=== PATIENT | male | born 1950 | race Caucasian/White ===

== ENCOUNTER 2019-09-16 05:46 | Inpatient (IN) | payer MEDICARE ==
[2019-09-09 11:43] LABS: BASOPHILS % (AUTO) 0.3 % (0-1); EOSINOPHILS # (AUTO) 0.2 X10'3 (0-0.9); EOSINOPHILS % (AUTO) 2.9 % (0-6); LYMPHOCYTES # (AUTO) 1.8 X10'3 (1.1-4.8); MEAN CORPUSCULAR HEMOGLOBIN 33.7 PG (27.0-31.0); MEAN CORPUSCULAR HGB CONC 34.7 g/dL (33.0-36.5); MEAN CORPUSCULAR VOLUME 97.2 FL (78-98); MEAN PLATELET VOLUME 7.1 FL (7.4-10.4); MONOCYTES # (AUTO) 0.8 X10'3 (0-0.9); MONOCYTES % (AUTO) 10.8 % (2-12); NEUTROPHILS # (AUTO) 4.3 X10'3 (1.8-7.7); PRE OP HEMATOCRIT 36.7 % (42.0-52.0); PRE OP HEMOGLOBIN 12.7 g/dL (14.0-17.9); PRE OP PLATELET COUNT 177 X10'3 (140-440); RED BLOOD COUNT 3.77 X10'6 (4.70-6.10); RED CELL DISTRIBUTION WIDTH 13.8 % (11.5-14.5)
[2019-09-09 11:54] LABS: PRE OP PROTIME 10.3 SECONDS (9.0-12.0)
[2019-09-09 11:57] LABS: ALBUMIN 3.7 G/DL (3.4-5.0); ALBUMIN/GLOBULIN RATIO 1.1 (1.1-1.5); BLOOD UREA NITROGEN 16 MG/DL (7-18); BUN/CREATININE RATIO 14.5 (5.4-32.0); CALCIUM 8.8 MG/DL (8.5-10.1); CHLORIDE 103 MMOL/L (99-107); PRE OP ALT 29 U/L (30-65); PRE OP ANION GAP 4 (8-16); PRE OP AST 27 U/L (10-37); PRE OP BILIRUB, TOTAL 0.8 MG/DL (0.0-1.0); PRE OP GLUCOSE 100 MG/DL (70-104); PRE OP POTASSIUM 3.6 MMOL/L (3.4-5.1); PRE OP SODIUM 139 MMOL/L (135-145); TOTAL CARBON DIOXIDE 31.9 MMOL/L (24-32); TOTAL PROTEIN 7.2 G/DL (6.4-8.2); eGFR 66 ML/MIN
[2019-09-09 12:36] LABS: ALKALINE PHOSPHATASE 76 IU/L (46-116)
[~2019-09-16] VITALS: Ht 172.7 cm; Wt 101.0 kg
[2019-09-16] VITALS (20 sets, daily range): BP systolic 96–140; BP diastolic 52–74
[~2019-09-16 05:46] MED LIST: ATOR10TA70 PO; CALC625T61; CARV6.253 PO; CHOL400T14 PO; DOCUMENT DATE & TIME OF BETA-BLOCKER PO ONE; HYDR25TA4 PO; LISI2.5T2 PO; MULT-955 PO; cefazolin/dext.iso 2gm/100ml 100 ML IV ONE; famotidine 20mg tablet PO ONE; ringers solution, lacted 1,000 ML IV SCH; vancomycin inj 1,500 MG in normal saline 300ml IV soln IV ONE
[2019-09-16] MEDS ORDERED: LIDOcaine 1% (10mg/ml) 2ml vial ONE (05:49)
[2019-09-16] MEDS ORDERED: ceFAZolin 1000mg inj ONE (06:43)
[2019-09-16] MEDS ORDERED: tetracaine 1% (10mg/ml) pres. free inj. ONE (07:13)
[2019-09-16] MEDS ORDERED: fentaNYL/PF 50MCG/1 ML 2ML syringe ONE (07:15)
[2019-09-16] MEDS ORDERED: MIDAZolam 5mg/5ml vial ONE (07:15)
[2019-09-16] MEDS ORDERED: tranexamic acid inj. 1,000 MG in normal saline 100ml IV soln 100 ML IV ONE (07:20)
[2019-09-16] MEDS ORDERED: propofol inj 20 ML IV ONE (07:49)
[2019-09-16] MEDS ORDERED: ROPIVAcaine 0.5% (5mg/ml) 30ml vial ONE (08:01)
[2019-09-16] MEDS ORDERED: LIDOcaine 1%/PF 5ML 10 MG/ML VIAL ONE (08:02)
[2019-09-16] MEDS ORDERED: ringers solution, lacted 1,000 ML IV SCH (08:48)
[2019-09-16] MEDS ORDERED: ROPIVAcaine 0.2%/PF PUMP/bolus 550 ML ADDCANAL SCH (08:48)
[2019-09-16] MEDS ORDERED: morphine 4 MG/ML inj SYRINge IV PRN ×2 (08:50)
[2019-09-16] MEDS ORDERED: proCHLORperazine 10 MG/2 ml inj IV PRN (08:50)
[2019-09-16] MEDS ORDERED: ondansetron/PF 4mg/2ml inj IV PRN ×2 (08:50→10:05)
[2019-09-16] MEDS ORDERED: meperidine/PF 25mg/ml syringe IV PRN ×3 (08:50)
[2019-09-16] MEDS ORDERED: HYDROmorphone 1 mg/ml syringe IV PRN (10:05)
[2019-09-16] MEDS ORDERED: magnesium hydroxide 30ml (MOM) UD suspension PO PRN (10:05)
[2019-09-16] MEDS ORDERED: diphenhydrAMINE 25mg capsule PO PRN ×2 (10:05)
[2019-09-16] MEDS ORDERED: bisacodyl 10mg suppository rectal RC PRN (10:05)
--- NOTE | 2019-09-16 10:05 | NUR ---
Received from OR via BED , accompanied by Anesthesiologist DR FRASER and report given by Anesthesiolgist. PATIENT WAKING UP, DENIES PAIN, V/S WNL, NEUROVASCULAR CHECKS INTACT, 18G PIV LUE , MARS DRESSING TO RIGHT KNEE CDI W/ COLD POWDER PACK AND W/ SCD ON. F/C DRAINING CLEAR YELLOW URINE. SENSATION T-11.
[2019-09-16] MEDS: ROPIVAcaine 0.2%/PF PUMP/bolus 550 ML ADDCANAL SCH ×2 (10:16→21:04)
--- NOTE | 2019-09-16 11:25 | NUR ---
PATIENT WAKING UP, DENIES PAIN, V/S WNL, NEUROVASCULAR CHECKS INTACT, 18G PIV LUE , MARS DRESSING TO RIGHT KNEE CDI W/ COLD POWDER PACK AND W/ SCD ON. F/C DRAINING CLEAR YELLOW URINE. SENSATION T-11. PATIENT TAKEN TO 4024B WITH ALL BELONGINGS AND HOOKED UP TO MONITORS IN ROOM AND REPORT GIVEN TO DISPATCHER [employer]POS[employer] WHO HAS TAKEN OVER PATIENT CARE.
[2019-09-16] MEDS: HYDROcodone/acetaminophen 10/325mg tab PO PRN ×2 (14:24→21:54)
[2019-09-16] MEDS: potassium Cl 20mEq in NS 1,000 ML IV SCH ×2 (15:45→23:24)
[2019-09-16] MEDS ORDERED: aspirin 325mg tablet PO SCH (17:30)
[2019-09-16] MEDS: ceFAZolin 1GM/D5W- ADD-VANTAGE 50 ML IV SCH (17:30)
--- NOTE | 2019-09-16 19:35 | NUR ---
REPORT REC'D FROM JAILENE TRUJILLO.
[2019-09-16] MEDS ORDERED: vancomycin/NS 1 GM ADD-VANTAGE 250 ML IV SCH (20:00)
[2019-09-16] MEDS ORDERED: aspirin 81mg tablet.DR PO ONE (20:20)
[2019-09-16] MEDS: carvedilol 6.25mg tablet PO SCH (21:02)
[2019-09-16] MEDS: sennosides 8.6mg tablet PO SCH (21:02)
[2019-09-16] MEDS: ROPIVAcaine 0.2% (10 MG/5 ML) BOLUS INJECTION ADDCANAL PRN (21:04)
[2019-09-17] VITALS (7 sets, daily range): BP systolic 104–145; BP diastolic 42–70
[2019-09-17] MEDS: ceFAZolin 1GM/D5W- ADD-VANTAGE 50 ML IV SCH (00:41)
--- NOTE | 2019-09-17 04:47 | NUR ---
PT IS REQUESTING TO NOT USE COLD PACKS ON KNEE R/T THE PRESSURE CAUSES MORE PAIN.
[2019-09-17] MEDS: potassium Cl 20mEq in NS 1,000 ML IV SCH ×2 (05:02→15:09)
[2019-09-17] MEDS: HYDROcodone/acetaminophen 10/325mg tab PO PRN ×3 (05:07→23:24)
--- NOTE | 2019-09-17 06:10 | NUR ---
REPORT GIVEN TO JAILENE TRUJILLO.
[2019-09-17 06:17] LABS: BASOPHILS % (AUTO) 0.2 % (0-1); EOSINOPHILS # (AUTO) 0.1 X10'3 (0-0.9); EOSINOPHILS % (AUTO) 0.8 % (0-6); HEMATOCRIT 29.7 % (42.0-52.0); HEMOGLOBIN 10.4 g/dl (14.0-17.9); LYMPHOCYTES # (AUTO) 1.2 X10'3 (1.1-4.8); LYMPHOCYTES % (AUTO) 12.8 % (21-51); MEAN CORPUSCULAR HEMOGLOBIN 33.9 PG (27.0-31.0); MEAN CORPUSCULAR HGB CONC 35.2 g/dL (33.0-36.5); MEAN CORPUSCULAR VOLUME 96.6 FL (78-98); MEAN PLATELET VOLUME 7.1 FL (7.4-10.4); MONOCYTES # (AUTO) 1.5 X10'3 (0-0.9); MONOCYTES % (AUTO) 16.2 % (2-12); NEUTROPHILS # (AUTO) 6.6 X10'3 (1.8-7.7); PLATELET COUNT 141 X10'3 (140-440); RED BLOOD COUNT 3.08 X10'6 (4.70-6.10); RED CELL DISTRIBUTION WIDTH 13.7 % (11.5-14.5); WHITE BLOOD COUNT 9.4 X10'3 (4.5-11.0)
[2019-09-17 07:11] LABS: ALANINE AMINOTRANSFERASE 24 U/L (12-78); ALKALINE PHOSPHATASE 61 IU/L (46-116); ANION GAP 7 (8-16); ASPARTATE AMINO TRANSFERASE 22 U/L (10-37); BILIRUBIN,TOTAL 1.4 MG/DL (0.1-1.0); BLOOD UREA NITROGEN 13 MG/DL (7-18); BUN/CREATININE RATIO 10.9 (5.4-32.0); CALCIUM 7.8 MG/DL (8.5-10.1); CHLORIDE 102 MMOL/L (99-107); CREATININE 1.19 MG/DL (0.60-1.10); GLUCOSE 115 MG/DL (70-104); SODIUM 136 MMOL/L (135-145); TOTAL CARBON DIOXIDE 27.1 MMOL/L (24-32); TOTAL PROTEIN 6.1 G/DL (6.4-8.2); eGFR 61 ML/MIN
[2019-09-17 07:48] LABS: TOTAL CELLS COUNTED 100
[2019-09-17] MEDS: lisinopril 2.5mg tablet PO SCH (07:49)
[2019-09-17] MEDS: HYDROchlorothiazide 25mg tablet PO SCH (07:49)
[2019-09-17 07:50] LABS: PLATELET ESTIMATE NORMAL
[2019-09-17] MEDS: aspirin 81mg tablet.DR PO SCH ×2 (07:53→19:32)
[2019-09-17] MEDS: carvedilol 6.25mg tablet PO SCH ×2 (09:11→19:32)
--- NOTE | 2019-09-17 11:42 | NUR ---
Student Medication Administration:For this medication-pass time frame 9404-1708, all medications were reviewed,administered and documented per hospital policy by Kelly Martin. Student documentation:I have reviewed and agree with all interventions, assessments performed and documented by Kelly Martin.
--- NOTE | 2019-09-17 12:02 | NUR ---
Patient report given, questions answered & plan of care reviewed with JAILENE Jarrett .
--- NOTE | 2019-09-17 14:46 | NUR ---
Joint replacement consult: Pt PO 100% regular diet s/p R knee surgery meeting needs. LBM 09/16. No nutrition concerns at this time. Addendum: 09/17/19 at [address] Amended: Links added.
[2019-09-17] MEDS: ROPIVAcaine 0.2%/PF PUMP/bolus 550 ML ADDCANAL SCH (16:13)
[2019-09-17] MEDS: sennosides 8.6mg tablet PO SCH (19:37)
--- NOTE | 2019-09-18 00:44 | NUR ---
PT SPIKED A FEVER 101.3, NOW RECHECK 99.0
[2019-09-18] MEDS: HYDROcodone/acetaminophen 10/325mg tab PO PRN (05:14)
[2019-09-18 06:00] VITALS: BP 109/49
--- NOTE | 2019-09-18 06:10 | NUR ---
Patient in room ORTHO 4024. I have received report from KINA DENT and had the opportunity to ask questions and assume patient care.
--- NOTE | 2019-09-18 06:17 | NUR ---
REPORT GIVEN TO JAILENE BERNARD.
[2019-09-18 06:21] LABS: BASOPHILS % (AUTO) 0.3 % (0-1); EOSINOPHILS # (AUTO) 0.1 X10'3 (0-0.9); EOSINOPHILS % (AUTO) 1.3 % (0-6); HEMATOCRIT 27.9 % (42.0-52.0); HEMOGLOBIN 9.8 g/dl (14.0-17.9); LYMPHOCYTES # (AUTO) 1.7 X10'3 (1.1-4.8); LYMPHOCYTES % (AUTO) 16.4 % (21-51); MEAN CORPUSCULAR HEMOGLOBIN 34.2 PG (27.0-31.0); MEAN CORPUSCULAR HGB CONC 35.3 g/dL (33.0-36.5); MEAN CORPUSCULAR VOLUME 96.9 FL (78-98); MEAN PLATELET VOLUME 7.1 FL (7.4-10.4); MONOCYTES # (AUTO) 1.8 X10'3 (0-0.9); MONOCYTES % (AUTO) 16.9 % (2-12); NEUTROPHILS # (AUTO) 6.9 X10'3 (1.8-7.7); NEUTROPHILS % (AUTO) 65.1 % (42-75); PLATELET COUNT 131 X10'3 (140-440); RED BLOOD COUNT 2.88 X10'6 (4.70-6.10); RED CELL DISTRIBUTION WIDTH 13.9 % (11.5-14.5); WHITE BLOOD COUNT 10.6 X10'3 (4.5-11.0)
[2019-09-18 06:52] LABS: ALANINE AMINOTRANSFERASE 16 U/L (12-78); ALBUMIN 2.8 G/DL (3.4-5.0); ALBUMIN/GLOBULIN RATIO 0.9 (1.1-1.5); ALKALINE PHOSPHATASE 59 IU/L (46-116); ANION GAP 10 (8-16); ASPARTATE AMINO TRANSFERASE 18 U/L (10-37); BILIRUBIN,TOTAL 1.2 MG/DL (0.1-1.0); BLOOD UREA NITROGEN 14 MG/DL (7-18); BUN/CREATININE RATIO 12.6 (5.4-32.0); CALCIUM 8.1 MG/DL (8.5-10.1); CHLORIDE 103 MMOL/L (99-107); CREATININE 1.11 MG/DL (0.60-1.10); GLUCOSE 96 MG/DL (70-104); SODIUM 138 MMOL/L (135-145); TOTAL CARBON DIOXIDE 25.3 MMOL/L (24-32); eGFR 66 ML/MIN
[2019-09-18] MEDS: aspirin 81mg tablet.DR PO SCH ×2 (09:08→17:55)
[2019-09-18] MEDS: HYDROchlorothiazide 25mg tablet PO SCH (09:09)
[2019-09-18] MEDS: carvedilol 6.25mg tablet PO SCH ×2 (09:09→20:34)
[2019-09-18] MEDS: lisinopril 2.5mg tablet PO SCH (09:10)
[2019-09-18 10:00] VITALS: BP 112/53
--- NOTE | 2019-09-18 11:21 | NUR ---
Student documentation: I have reviewed all interventions, assessments performed and [facility] Student Medication Administration: For this medication-pass time frame, all medication were reviewed, dispensed, administered and documented per hospital policy [facility] [place].
[2019-09-18] MEDS: acetaminophen 325mg tablet PO PRN ×2 (13:53→21:28)
[2019-09-18 18:00] VITALS: BP 121/65
--- NOTE | 2019-09-18 18:10 | NUR ---
Problems reprioritized. Patient report given, questions answered & plan of care reviewed with KINA DENT.
--- NOTE | 2019-09-18 18:32 | NUR ---
REPORT REC'D FROM JAILENE BERNARD.
[2019-09-18] MEDS: sennosides 8.6mg tablet PO SCH (20:34)
[2019-09-18 21:36] VITALS: BP 131/71
--- NOTE | 2019-09-18 21:38 | NUR ---
PT HAS BEEN EDUCATED ON USING HIS IS. HE STATES THAT HE IS USING IT. PT WAS ENCOURAGED TO TAKE A WALK AND INCREASE LUNG EXPANSION. HE REFUSED AT THIS TIME. PT HAS BEEN GIVEN TYLENOL FOR INCREASED TEMP 101.4. WILL CONTINUE TO MONITOR. PT IS VERY STILL AND THEREFORE IS QUITE STIFF, DOES NOT WANT TO MOVE. HE STATES THAT HE IS USING HIS ON'QUE BOLUS. DIAL SET AT 14. STATES PAIN IS 2/10.
--- NOTE | 2019-09-19 02:37 | NUR ---
PT WALKED 150FT WITH 2PERSON ASSIST AND FWW. CONTINUES TO SPIKE TEMPS 100.3 AND 101.4. TYLENOL IS ADMINISTERD AND TEMP RETURNS TO 99.0 - 99.5. PT USES CPAP FROM HOME. SPO2 96%/RA. LUNGS ARE CLEAR. PT DOES C/O HOT AND COLD CHILLS. WILL OBSERVE LABS IN THE AM, AND REPORT TO DAY NURSE.
[2019-09-19] MEDS: ROPIVAcaine 0.2%/PF PUMP/bolus 550 ML ADDCANAL SCH (04:48)
[2019-09-19] MEDS: ROPIVAcaine 0.2% (10 MG/5 ML) BOLUS INJECTION ADDCANAL PRN (04:49)
--- NOTE | 2019-09-19 05:00 | NUR ---
NEW ON-qUE PUMP AND BOLUS BALL REPLACED AT THIS TIME.
--- NOTE | 2019-09-19 06:17 | NUR ---
REPORT GIVEN TO JAILENE BERNARD.
--- NOTE | 2019-09-19 06:20 | NUR ---
Patient in room ORTHO 4024. I have received report from KINA DENT and had the opportunity to ask questions and assume patient care.
--- NOTE | 2019-09-19 06:30 | NUR ---
on q down to 10ml/hr.
[2019-09-19 06:51] LABS: BASOPHILS % (AUTO) 0.2 % (0-1); EOSINOPHILS # (AUTO) 0.2 X10'3 (0-0.9); EOSINOPHILS % (AUTO) 2.1 % (0-6); HEMATOCRIT 27.5 % (42.0-52.0); HEMOGLOBIN 9.7 g/dl (14.0-17.9); LYMPHOCYTES # (AUTO) 1.5 X10'3 (1.1-4.8); LYMPHOCYTES % (AUTO) 15.9 % (21-51); MEAN CORPUSCULAR HEMOGLOBIN 33.8 PG (27.0-31.0); MEAN CORPUSCULAR HGB CONC 35.2 g/dL (33.0-36.5); MEAN CORPUSCULAR VOLUME 96.2 FL (78-98); MEAN PLATELET VOLUME 7.2 FL (7.4-10.4); MONOCYTES # (AUTO) 1.3 X10'3 (0-0.9); MONOCYTES % (AUTO) 13.8 % (2-12); NEUTROPHILS # (AUTO) 6.5 X10'3 (1.8-7.7); PLATELET COUNT 150 X10'3 (140-440); RED BLOOD COUNT 2.86 X10'6 (4.70-6.10); RED CELL DISTRIBUTION WIDTH 13.7 % (11.5-14.5); WHITE BLOOD COUNT 9.5 X10'3 (4.5-11.0)
[2019-09-19 07:13] LABS: ALANINE AMINOTRANSFERASE 24 U/L (12-78); ALBUMIN 2.7 G/DL (3.4-5.0); ALBUMIN/GLOBULIN RATIO 0.7 (1.1-1.5); ALKALINE PHOSPHATASE 76 IU/L (46-116); ANION GAP 10 (8-16); ASPARTATE AMINO TRANSFERASE 29 U/L (10-37); BLOOD UREA NITROGEN 14 MG/DL (7-18); BUN/CREATININE RATIO 12.8 (5.4-32.0); CALCIUM 8.2 MG/DL (8.5-10.1); CHLORIDE 99 MMOL/L (99-107); CREATININE 1.09 MG/DL (0.60-1.10); GLUCOSE 94 MG/DL (70-104); POTASSIUM 3.3 MMOL/L (3.5-5.1); SODIUM 137 MMOL/L (135-145); TOTAL CARBON DIOXIDE 28.5 MMOL/L (24-32); TOTAL PROTEIN 6.4 G/DL (6.4-8.2); eGFR 67 ML/MIN
[2019-09-19] MEDS: aspirin 81mg tablet.DR PO SCH (08:27)
[2019-09-19] MEDS: carvedilol 6.25mg tablet PO SCH (08:27)
[2019-09-19] MEDS: HYDROchlorothiazide 25mg tablet PO SCH (08:28)
[2019-09-19] MEDS: lisinopril 2.5mg tablet PO SCH (08:29)
[2019-09-19] MEDS ORDERED: HYDR-4353 PO (09:26)
[2019-09-19] MEDS ORDERED: ASPI-1071 PO (09:26)
[2019-09-19 10:00] VITALS: BP 103/48
--- NOTE | 2019-09-19 10:15 | NUR ---
PATIENT DISCHARGED SAFELY HOME WITH . ALL BELONGINGS IN POSSESSION. PRESCRIPTIONS FOR PAIN MEDS GIVEN AT DISCHARGE. PATIENT VERBALIZES UNDERSTANDING OF ALL DISCHARGE INSTRUCTIONS.
--- NOTE | 2019-09-19 12:00 | NUR ---
Student documentation: I have reviewed and agree with all interventions, assessments performed and documented by DONNA NAIDU. Student Medication Administration: For this medication-pass time frame, all medication were reviewed, dispensed, administered and documented per hospital policy by DONNA NAIDU.
--- NOTE | 2019-09-19 12:00 | NUR ---
Student documentation: I have reviewed and agree with all interventions, assessments performed and documented by DONNA NAIDU.
== END 2019-09-19 10:15 | disposition home or self-care (01) | DRG 470 ==
LOC: PAS IN 05:46 → EDSTATUS 07:30 → ORTHO 4S 11:28
PROVIDERS: ADMIT Orthopaedic Surgery; ATTEND Orthopaedic Surgery
PROC: 3E0T3BZ Introduction of Anesthetic Agent into Peripheral Nerves and Plexi, Percutaneous Approach (ICD-10-PCS; 2019-09-16)
PROC: 0SRC069 Replacement of Right Knee Joint with Oxidized Zirconium on Polyethylene Synthetic Substitute, Cemented, Open Approach (ICD-10-PCS; principal; 2019-09-16 07:18)
DX: M17.11 Unilateral primary osteoarthritis, right knee (principal); J98.11 Atelectasis; D62 Acute posthemorrhagic anemia; E78.5 Hyperlipidemia, unspecified; I10 Essential (primary) hypertension; I25.10 Atherosclerotic heart disease of native coronary artery without angina pectoris; G47.30 Sleep apnea, unspecified; Z79.899 Other long term (current) drug therapy
CPT/HCPCS: 36415; 80053; 82948; 85025; 85610; 85730; 86885; 86900; 86901; 86920; 87081; 93005; 97110; 97112; 97116; 97161; 97530; 97535; A4215; A4618; A6455; A7000; C1713; C1758; C1776; G0378; J0690; J2001; J2250; J2704; J2795; J3010; J3370; J3480; J7120; Q0163